=== PATIENT | female | born 1955 | race Caucasian/White ===

== ENCOUNTER 2022-07-27 05:54 | Inpatient (IN) | payer MEDICARE ==
[~2022-07-27] VITALS: Ht 160 cm; Wt 99.8 kg
[2022-07-27] MEDS ORDERED: MORPHINE SULFATE 4 MG/ML CPJ (NOT FOR IM USE) IV STA (06:02)
[2022-07-27] MEDS ORDERED: MAGNESIUM/ALUMINUM HYDROXIDE/SIMETHICONE 30ML UDC PO STA (06:02)
[2022-07-27] MEDS ORDERED: ONDANSETRON 4MG ODT PO STA (06:02)
[2022-07-27 06:38] LABS: BASOPHILS % 0.5 % (0.0-2.0); EOSINOPHILS % 1.5 % (0.0-5.0); HEMATOCRIT. 38.6 % (36.0-48.0); HEMOGLOBIN. 12.9 g/dL (12.0-16.0); MEAN CORPUSCULAR HEMOGLOBIN 29.7 pg (28.0-32.0); MEAN CORPUSCULAR VOLUME 88.7 fL (81.0-99.0); MEAN PLATELET VOLUME 8.3 fl (7.4-10.4); MONOCYTES % 7.5 % (2.0-8.0); NEUTROPHILS % 63.5 % (40.0-76.0); PLATELET 206 x1000/uL (130-400); RED BLOOD CELL COUNT 4.35 mill/uL (4.2-5.4); RED CELL DISTRIBUTION WIDTH 14.8 % (11.6-14.6)
[2022-07-27 06:42] LABS: CHLORIDE 109 mEq/L (98-107)
[2022-07-27 06:47] LABS: INR 0.9; PROTHROMBIN TIME 10.2 sec (9.6-11.0)
[2022-07-27 06:48] LABS: ETHANOL BLOOD < 10 mg/dL
[2022-07-27] MEDS ORDERED: MORPHINE SULFATE 4 MG/ML CPJ (NOT FOR IM USE) IV NR (08:30)
[2022-07-27] MEDS ORDERED: ONDANSETRON 4MG ODT PO NR (08:30)
[2022-07-27] MEDS ORDERED: MAGNESIUM/ALUMINUM HYDROXIDE/SIMETHICONE 30ML UDC PO NR (08:30)
[2022-07-27] MEDS ORDERED: ONDANSETRON HCL 4MG/2ML INJ IV ONE (09:00)
[2022-07-27] MEDS ORDERED: IOHEXOL-350 100 ML BOTTLE ONE (09:22)
[2022-07-27 12:00] VITALS: BP 139/68
[2022-07-27] MEDS ORDERED: ONDANSETRON HCL 4MG/2ML INJ IV PRN (12:30)
[2022-07-27] MEDS ORDERED: NALOXONE HCL 0.4MG/ML VIAL IV PRN (12:30)
[2022-07-27] MEDS: PANTOPRAZOLE SODIUM 40 MG/VIAL IV SCH (13:13)
[2022-07-27] MEDS: DEXT 5%/0.45% NACL 1000ML 1,000 ML IV SCH (13:14)
[2022-07-27] MEDS: MORPHINE SULFATE 2 MG/ML CPJ (NOT FOR IM USE) IV PRN ×3 (13:23→23:11)
[2022-07-27 14:48] VITALS: BP 137/76
[2022-07-27 16:00] VITALS: BP 172/72
[2022-07-27] MEDS ORDERED: HYDRALAZINE 20MG/ML VIAL IV PRN (17:30)
[2022-07-27] MEDS ORDERED: HYDRALAZINE 10 MG in SODIUM CHLORIDE 0.9% 49.5 ML IV PRN (17:30)
[2022-07-27] MEDS ORDERED: HYDRALAZINE HCL 10MG TABLET PO SCH (18:00)
[2022-07-27 20:00] VITALS: BP 172/79
[2022-07-28] VITALS: BP 139/84
[2022-07-28] MEDS: LORAZEPAM 2MG/ML CPJ IV PRN (01:55)
[2022-07-28] MEDS: DEXT 5%/0.45% NACL 1000ML 1,000 ML IV SCH ×2 (02:00→16:58)
[2022-07-28 04:44] VITALS: BP 117/74
[2022-07-28 05:40] LABS: HEMATOCRIT. 49.1 % (36.0-48.0); HEMOGLOBIN. 16.2 g/dL (12.0-16.0); MEAN CORPUSCULAR HEMOGLOBIN 29.3 pg (28.0-32.0); MEAN CORPUSCULAR VOLUME 88.8 fL (81.0-99.0); MEAN PLATELET VOLUME 9.2 fl (7.4-10.4); PLATELET 257 x1000/uL (130-400); RED BLOOD CELL COUNT 5.53 mill/uL (4.2-5.4); RED CELL DISTRIBUTION WIDTH 14.9 % (11.6-14.6)
[2022-07-28 06:10] LABS: CHLORIDE 107 mEq/L (98-107)
[2022-07-28 08:00] VITALS: BP 110/67
[2022-07-28] MEDS: PANTOPRAZOLE SODIUM 40 MG/VIAL IV SCH (09:04)
[2022-07-28 12:00] VITALS: BP 116/76
[2022-07-28] MEDS ORDERED: CEFTRIAXONE 1,000 MG in DEXTROSE 5% WATER 50 ML IV SCH (13:00)
[2022-07-28 14:21] LABS: PLATELET ESTIMATE NORMAL
[2022-07-28 16:00] VITALS: BP 131/85
[2022-07-28 16:15] LABS: CLARITY URINE CLEAR (CLEAR); COLOR URINE DARK YELLOW (YELLOW); KETONES URINE TRACE (NEGATIVE); LEUKOCYTE ESTERASE URINE NEGATIVE (NEGATIVE); NITRITE URINE NEGATIVE (NEGATIVE); OCCULT BLOOD URINE NEGATIVE (NEGATIVE); PROTEIN URINE 1+ (NEGATIVE); SPECIFIC GRAVITY URINE 1.045 (1.005-1.030)
[2022-07-28 17:31] LABS: *AMPHETAMINES SCREEN URINE NEGATIVE (NEGATIVE); *BARBITURATES SCREEN URINE NEGATIVE (NEGATIVE); *BENZODIAZEPINES SCREEN URINE NEGATIVE (NEGATIVE); *COCAINE SCREEN URINE NEGATIVE (NEGATIVE); CANNABINOID URINE SCREEN NEGATIVE (NEGATIVE); METHADONE URINE SCREEN NEGATIVE (NEGATIVE); OPIATES URINE SCREEN PRESUMTIVE POSITIVE (NEGATIVE); PHENCYCLIDINE URINE SCREEN NEGATIVE (NEGATIVE)
[2022-07-28] MEDS: METRONIDAZOLE 500 MG PREMIX 100 ML IV SCH (19:34)
[2022-07-28 20:00] VITALS: BP 132/88
[2022-07-29] VITALS: BP 144/86
[2022-07-29] MEDS: METRONIDAZOLE 500 MG PREMIX 100 ML IV SCH (02:05)
== END 2022-07-29 05:05 | disposition left against medical advice (07) | DRG 872 ==
LOC: ER 05:54 → 6EST 10:31 → EDBEDREQTM 10:32 → EDBEDREQ 10:32 → ENRESERV 11:21
PROVIDERS: ADMIT Internal Medicine; ATTEND Internal Medicine
DX: A41.9 Sepsis, unspecified organism (principal); K56.609 Unspecified intestinal obstruction, unspecified as to partial versus complete obstruction; A09 Infectious gastroenteritis and colitis, unspecified; E03.9 Hypothyroidism, unspecified; Z53.29 Procedure and treatment not carried out because of patient's decision for other reasons; Z82.49 Family history of ischemic heart disease and other diseases of the circulatory system; Z90.710 Acquired absence of both cervix and uterus
CPT/HCPCS: 36415; 74018; 74174; 76705; 80048; 80053; 80305; 80320; 81003; 83605; 85025; 93005; 99285; C9113; J0360; J0696; J2060; J2270; J2405; J3490; J7060; Q0162; Q9967; G0480